=== PATIENT | male | born 1970 | race Caucasian/White ===

== ENCOUNTER 2017-05-02 16:35 | Emergency (ER) | payer BC ==
[2017-05-02 16:46] VITALS: PULSE 74
--- NOTE | 2017-05-02 17:20 | ED ---
Extremity Problem HPI - General Chief complaint: Extremity Problem,Nontraumatic Stated complaint: enlarged veins in legs Time Seen by Provider: 05/02/17 17:06 Source: patient Mode of arrival: wheelchair Limitations: no limitations - History of Present Illness Initial comments: 46-year-old male patient presents to emergency department today for evaluation of left calf pain and discomfort. Patient states he has had this pain for the last 3-4 days. Patient does have a history of varicose veins. States that when he stands for a long period of time the pain becomes worse, and he has an engorged vein that runs from his ankle all way up to his thigh. He states that the pain is like a dull aching cramping pain. He denies any new activity or injury causing the pain. He denies any increased redness or warmth. He states that the leg does become swollen at times. Denies any recent travel, long car rides, or flights. Patient denies any recent rash, fever, chills, shortness breath, chest pain, palpitations, abdominal pain, nausea, vomiting, diarrhea, constipation, back pain, numbness, tingling, dizziness, weakness, hematuria, dysuria, urinary urgency, urinary frequency, headache, visual changes, or any other complaints. His only past medical history is hyperlipidemia. - Related Data Previous Rx's Medication Instructions Recorded Apixaban [Eliquis] 5 mg PO DIRECTED #70 tab 05/02/17 Allergies Allergy/AdvReac Type Severity Reaction Status Date / Time No Known Allergies Allergy Verified 05/02/17 16:58 Review of Systems ROS Statement: Those systems with pertinent positive or pertinent negative responses have been documented in the HPI. ROS Other: All systems not noted in ROS Statement are negative. Past Medical History Past Medical History: Hyperlipidemia History of Any Multi-Drug Resistant Organisms: None Reported Past Surgical History: No Surgical Hx Reported Past Psychological History: No Psychological Hx Reported Smoking Status: Never smoker Past Alcohol Use History: Occasional Past Drug Use History: None Reported General Exam Limitations: no limitations General appearance: alert, in no apparent distress, other (This is a well- developed, well-nourished adult male patient in no acute distress. Vital signs upon presentation are temperature 98.7F, pulse 74, respirations 18, blood pressure 140/103, pulse ox 97% on room air.) Eye exam: Present: normal appearance, PERRL, EOMI. Absent: scleral icterus, conjunctival injection, periorbital swelling Respiratory exam: Present: normal lung sounds bilaterally. Absent: respiratory distress, wheezes, rales, rhonchi, stridor Cardiovascular Exam: Present: regular rate, normal rhythm, normal heart sounds. Absent: systolic murmur, diastolic murmur, rubs, gallop, clicks Extremities exam: Present: normal inspection, full ROM, tenderness (Over the left calf), normal capillary refill, other (Is evidence of varicose veins to the left lower leg, to the anterolateral aspect of the left upper calf. Skin otherwise is pink, warm, and dry. No evidence of erythema localized swelling. Temperature is uniform and equal to the right leg. Pedal and posttibial pulses are present 2+.). Absent: pedal edema, joint swelling, calf tenderness Neurological exam: Present: alert, oriented X3, CN II-XII intact Psychiatric exam: Present: normal affect, normal mood Skin exam: Present: warm, dry, intact, normal color. Absent: rash Course Vital Signs 05/02/17 16:43 Temperature 98.7 F Pulse Rate 74 Respiratory 18 Rate Blood Pressure 140/103 O2 Sat by Pulse 97 Oximetry Medical Decision Making - Medical Decision Making 46-year-old male patient presented for evaluation of left calf pain and discomfort. Ultrasound venous duplex of the left lower extremity was performed and was positive for DVT in the popliteal vein extending into the proximal calf veins. Patient will be treated outpatient for this with Eliquis. He'll be given 10 mg to start here in the department. He be given a one-month prescription for this and instructed to follow-up with his primary care physician for further evaluation and further prescriptions. He was given extensive education guarding his increased risk of bleeding. He was educated regarding head injury, s/sx of bleeding including hematuria, hematochezia, and melena. He is instructed to return here immediately for any new, worsening, or concerning symptoms. He is instructed to follow-up his primary care physician for recheck 1-2 days. Patient verbalizes understanding and agrees with this plan. - Radiology Data Radiology results: report reviewed, image reviewed US venous Doppler duplex of the left lower extremity was performed that showed positive DVT. Nonoccluding thrombus noted left popliteal vein lower extending into the proximal calf vein. Impression by Dr. Healy shows deep venous thrombosis left popliteal vein extending into proximal calf veins. Disposition Clinical Impression: DVT, popliteal, acute Disposition: HOME SELF-CARE Condition: Good Instructions: Deep Venous Thrombosis (ED), Safe Use of Anticoagulants (ED) Additional Instructions: You will be started on anticoagulant medication. This makes you at risk for increased bleeding. If you sustain any injuries to cause bleeding you must hold pressure for longer periods of time. If you have any sustain any head injuries you are at increased risk for bleeding in the brain and you must present for evaluation immediately. Take anticoagulation medication as directed. Return immediately should you develop any shortness of breath, palpitations, chest pain, or any other concerning symptoms. Follow-up with your primary care physician for recheck in 1-2 days. It is very important you follow up for further evaluation and for continued anticoagulant prescriptions. Prescriptions: Apixaban [Eliquis] 5 mg PO DIRECTED #70 tab Referrals: Sj Perez MD [Primary Care Provider] - 1-2 days Time of Disposition: 18:39
--- NOTE | 2017-05-02 18:29 | US ---
EXAMINATION TYPE: US venous doppler duplex LE LT DATE OF EXAM: 05/02/2017 5:49 PM COMPARISON: NONE CLINICAL HISTORY: Pain. Pain left lower leg, history of varicose veins SIDE PERFORMED: left TECHNIQUE: The lower extremity deep venous system is examined utilizing real time linear array sonog tanya with graded compression, doppler sonography and color-flow sonography. VESSELS IMAGED: External Iliac Vein (EIV) Common Femoral Vein Deep Femoral Vein Greater Saphenous Vein * Femoral Vein Popliteal Vein Small Saphenous Vein * Proximal Calf Veins (* superficial vessels) Left Leg: +Positive for DVT. Non occluding thrombus noted left popliteal vein lower extending into p roximal calf vein IMPRESSION: 1. Deep venous thrombosis left popliteal vein extending into proximal calf veins.
[2017-05-02] MEDS ORDERED: APIXABAN 5 MG TAB PO STA (18:36)
[2017-05-02 19:01] VITALS: BP 150/90; RESP 20; TEMP 98
== END 2017-05-02 19:00 | disposition home or self-care (01) ==
LOC: EC 16:35
DX: I82.432 Acute embolism and thrombosis of left popliteal vein (principal)
CPT/HCPCS: 99283

== ENCOUNTER → 2018-02-18 | Outpatient (CLI) | payer BC ==
--- NOTE | 2018-02-18 17:24 | US ---
EXAMINATION TYPE: US venous doppler duplex LE LT DATE OF EXAM: 02/18/2018 5:09 PM COMPARISON: NONE CLINICAL HISTORY: I82.5Z9 History of DVT. pain on left anterior knee x 1 night, difficulty walking, h /o dvt in left SIDE PERFORMED: TECHNIQUE: The lower extremity deep venous system is examined utilizing real time linear array sonog tanya with graded compression, doppler sonography and color-flow sonography. VESSELS IMAGED: External Iliac Vein (EIV) Common Femoral Vein Deep Femoral Vein Greater Saphenous Vein * Femoral Vein Popliteal Vein Small Saphenous Vein * Proximal Calf Veins (* superficial vessels) Left Leg: Appears negative for DVT, scanned at area of pain on anterior knee at patella, fluid colle ction seen posterior to patellar tendon of unknown etiology. Patient has MRI in am. Officed closed, sent patient home due to negative dvt findings IMPRESSION: Negative exam. No evidence of deep venous thrombosis in the left leg. Knee joint effusion noted.
== END | disposition home or self-care (01) ==
LOC: RADUSMAIN 16:32
PROVIDERS: ATTEND Registered Nurse Oncology
DX: M25.462 Effusion, left knee (principal)

== ENCOUNTER → 2018-02-19 | Outpatient (CLI) | payer BC ==
--- NOTE | 2018-02-19 11:50 | MR ---
EXAMINATION TYPE: MR knee LT wo con DATE OF EXAM: 02/19/2018 COMPARISON: Left lower extremity venous ultrasound from yesterday HISTORY: Lt knee pain and swelling for 2 days. TECHNIQUE: Multiplanar, multisequence images of the knee is performed without IV contrast. FINDINGS: MEDIAL MENISCUS: Anterior and posterior horns are intact without tear. LATERAL MENISCUS: Anterior and posterior horns are intact without tear. CRUCIATE LIGAMENTS: The anterior and posterior cruciate ligaments are intact and unremarkable. COLLATERAL LIGAMENTS: The medial collateral ligament and lateral collateral ligament complex are inta ct and unremarkable. EXTENSOR MECHANISM: Visualized quadriceps and patellar tendons are intact. EFFUSION: No significant suprapatellar joint effusion. POPLITEAL CYST: No popliteal/hough cyst. TRICOMPARTMENT SPACES: Tricompartment joint spaces show mild narrowing. No significant spurring is se en. CARTILAGE: Tricompartment articular cartilage is fairly well-maintained BONE MARROW SIGNAL: No focal abnormal marrow signal is appreciated. OTHER: There is some heterogeneous increased fluid in the inferior superficial patellar space and ant erior aspect of the deep inferior patellar space and Hoffa's fat pad. There is more focal increased f luid noted lateral inferior aspect sagittal image 10. There is prominent superficial vessel likely varicose veins medially seen best sagittal image 2. IMPRESSION: 1. No meniscal or ligamentous tear is present. 2. Superficial and deep infrapatellar bursitis with more focal fluid anterior inferior lateral fat pa d could reflect infrapatellar fat pad impingement syndrome at level of distal patellar tendon.
== END | disposition home or self-care (01) ==
LOC: RADMRIMAIN 10:00
PROVIDERS: ATTEND Internal Medicine Hematology & Oncology
DX: M70.52 Other bursitis of knee, left knee (principal)